=== PATIENT | female | born 1990 ===

== ENCOUNTER 2016-06-17 19:34 | Inpatient (IN) ==
[2016-06-17] MEDS ORDERED: ACETAMINOPHEN 325 MG TABLET PO PRN (20:40)
[2016-06-17] MEDS ORDERED: ONDANSETRON 4 MG/2 ML VIAL IV PRN (20:40)
[2016-06-17] MEDS ORDERED: BUTORPHANOL 2 MG/ML VIAL IV PRN (20:40)
[2016-06-17 21:30] LABS: Basophils % 0.4 % (0.0-0.8); Eosinophils % 0.3 % (0.00-10.9); Hematocrit 41.8 VOL% (35.7-47.0); Hemoglobin 13.3 GM/DL (12.0-16.0); Immature Granulocytes Absolute 0.21 #; Lymphocytes # 2.5 10*3/uL (1.4-4.0); Lymphocytes % 35.5 % (21.3-54.2); Mean Corpuscular HGB Conc 31.8 GM/DL (32-36); Mean Corpuscular Hemoglobin 24 PG (27-34); Mean Corpuscular Volume 76.1 FL (87-102); Mean Platelet Volume 12.2 FL (9.6-12.0); Monocytes # 0.3 10*3/uL (0.11-0.8); Monocytes % 4.7 % (1.7-12.7); NRBC # 0.18 10*3/uL; Neutrophils # 3.9 10*3/uL (1.4-7.4); Neutrophils % 56.1 % (38.7-73.9); Platelet Count 153 T/CUMM (130-400); Red Blood Count 5.49 MC/CUMM (3.8-5.5)
[2016-06-17 21:42] LABS: INR 0.9; PT Patient Result 9.7 SECS; Partial Thromboplastin Time 27.4 SECS (0-40)
[2016-06-17] MEDS: LACTATED RINGERS 1,000 ML IV SCH (21:45)
[2016-06-17] MEDS: AMPICILLIN INJ 2,000 MG in SODIUM CHLORIDE 0.9% 100 ML IV SCH (21:48)
[2016-06-17 21:57] LABS: Albumin 2.2 G/DL (3.4-5.0); Bilirubin,Total 0.4 MG/DL (0.2-1.0); Calcium 8.5 MG/DL (8.5-10.1); Potassium 4.2 MMOL/L (3.5-5.1); Total Protein 5.7 G/DL (6.4-8.3); Uric Acid 10.4 MG/DL (2.6-6.0)
[2016-06-18] MEDS: AMPICILLIN INJ 2,000 MG in SODIUM CHLORIDE 0.9% 100 ML IV SCH (03:00)
[2016-06-18] MEDS ORDERED: OXYTOCIN/LR 20 UNIT/1,000 ML BAG IV ONE ×2 (03:24→11:00)
[2016-06-18] MEDS ORDERED: OXYTOCIN/LR 20 UNIT/1,000 ML BAG IV SCH (04:00)
[2016-06-18] MEDS: LACTATED RINGERS 1,000 ML IV SCH (05:49)
[2016-06-18] MEDS ORDERED: MEPERIDINE 50 MG/1 ML VIAL IV PRN (07:42)
[2016-06-18] MEDS ORDERED: LIDOCAINE 1% 50 ML VIAL ONE (09:10)
--- NOTE | 2016-06-18 10:54 | OB/GYN History & Physical ---
History of Present Illness Chief complaint: 37 weeks and 4 days in active labor History of present illness: Ms. Thrasher is a 26 year old female 2 para 1 EDC is 5,13 patient presents to labor and delivery at 6 cm dilated. heart tones are category 1, patient will request an epidural when appropriate. Contractions are every 2-3 minutes apart and moderate intensity. Home Medications Medication Instructions Recorded Confirmed Type Vit 108/Iron/Folic AC 1 each PO DAILY 06/16/16 06/17/16 History [ One Tablet] Allergies Allergy/AdvReac Type Severity Reaction Status Date / Time No Known Allergies Allergy Verified 06/16/16 16:49 Medical,Surgical,& Family Hx - Medical History Reproductive: No history of: Ectopic , Complication - Surgical History Reproductive Surgeries: Patient denies;: Section - Family History Family History: Denies;: Family Anesthesia Reaction, Family Cancer, Family Diabetes, Family Heart Disease, Family Hematology, Family Hypertension, Family Psychiatric Problems, Family Stroke, Additional Family History - Social History Smoking Status: Never smoker Frequency of Alcohol Use: None 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 - Constitutional Vitals: Vital Signs Temp Pulse Resp BP Pulse Ox 06/18/16 08:00 98.7 F 76 20 120/61 06/18/16 04:00 97.8 F 73 18 91/53 06/18/16 00:00 97.6 F 72 18 119/85 06/17/16 20:00 98 F 100 H 20 132/88 99 General appearance: mild distress - Antepartum / Post Antepartum Exam Cervix -Dilatation: 6 cm, 80%, -2 station Vagina: Present: normal moisture - Head Head exam: Present: normal inspection - Eye Eye exam: Present: EOMI Pupils: Present: LOI - ENT ENT exam: Present: normal exam - Neck Neck exam: Present: normal inspection - Respiratory Respiratory exam: Present: clear to auscultation bilaterally - Breast Breasts: as per HPI Menstruation: as per HPI - Cardiovascular Cardiovascular exam: Present: regular rate and rhythm - GI/Abdominal GI/Abdominal exam: Present: normal bowel sounds, other (Positive heart tones) - Back Exam Back exam: Present: normal inspection - Neurological Exam Neurological exam: Present: alert - Psychiatric Psychiatric exam: Present: normal affect - Skin Skin exam: Present: normal color Assessment and Plan (1) Active labor Status: Acute Assessment and plan: 37+ weeks, and active labor, 6 cm on admission. We will plan on an anticipated vaginal . Current Visit: Yes Results - Labs CBC & BMP: 06/17/16 20:58 06/17/16 20:59
--- NOTE | 2016-06-18 10:58 | Event Note ---
Stage I of labor Admitted at 6 cm dilated Artificial rupture membranes clear fluid External monitoring IV Pitocin heart tones are category 1 Stage II Vaginal 8 lbs. 7 oz. female At 10:09 AM Apgars were 9 at 1 minute and 9 at 5 minutes Cord blood was obtained, and no cord gas Stage III Spontaneous delivery of the placenta 3 cord vessels First-degree laceration at introitus repair with #3-0 chromic Blood loss was 300 cc Mother stable
[2016-06-18] MEDS ORDERED: BISACODYL 10 MG SUPP RECTAL PRN (11:00)
[2016-06-18] MEDS ORDERED: ACETAMINOPHEN 325 MG TABLET PO PRN (11:00)
[2016-06-18] MEDS ORDERED: HYDROCORTISONE 2.5% RECTAL CREAM 30 GM TUBE TOP PRN (11:00)
[2016-06-18] MEDS ORDERED: oxyCODONE/ACETAMINOPHEN 5-325 MG TABLET PO PRN (11:00)
[2016-06-18] MEDS ORDERED: ONDANSETRON 4 MG/2 ML VIAL IV PRN (11:00)
[2016-06-18] MEDS ORDERED: BENZOCAINE 20%/MENTHOL 0.5% SPRAY 56 GM CAN TOP PRN (11:00)
[2016-06-18] MEDS ORDERED: LANOLIN 50% CREAM 0.3 OZ TUBE TOP PRN (11:00)
[2016-06-18] MEDS ORDERED: RHO(D) IMMUNE GLOBULIN 300 MCG SYRINGE IM ONE (11:00)
[2016-06-18] MEDS ORDERED: WITCH HAZEL PADS 100/JAR TOP PRN (11:00)
[2016-06-18] MEDS: oxyCODONE/ACETAMINOPHEN 5-325 MG TABLET PO PRN ×2 (15:36→22:27)
[2016-06-18] MEDS: IBUPROFEN 800 MG TABLET PO PRN (19:57)
[2016-06-18] MEDS: DOCUSATE SODIUM 100 MG CAPSULE PO SCH (20:57)
[2016-06-19 06:46] LABS: Basophils % 0.3 % (0.0-0.8); Eosinophils % 0.4 % (0.00-10.9); Hematocrit 38.3 VOL% (35.7-47.0); Hemoglobin 11.9 GM/DL (12.0-16.0); Immature Granulocytes % 1.4 %; Immature Granulocytes Absolute 0.16 #; Mean Corpuscular HGB Conc 31.1 GM/DL (32-36); Mean Corpuscular Hemoglobin 25 PG (27-34); Mean Corpuscular Volume 78.8 FL (87-102); Mean Platelet Volume 12.7 FL (9.6-12.0); Monocytes # 0.8 10*3/uL (0.11-0.8); Monocytes % 6.6 % (1.7-12.7); NRBC # 0.11 10*3/uL; Neutrophils # 6.4 10*3/uL (1.4-7.4); Neutrophils % 56.3 % (38.7-73.9); Platelet Count 116 T/CUMM (130-400); Red Blood Count 4.86 MC/CUMM (3.8-5.5); White Blood Count 11.4 T/CUMM (4-12)
--- NOTE | 2016-06-19 08:22 | OB/GYN Progress Note ---
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 - Constitutional Vitals: Vital Signs Temp Pulse Resp BP Pulse Ox 06/19/16 07:41 97.3 F L 58 L 18 113/67 99 06/19/16 03:50 97.3 F L 68 16 104/66 96 06/18/16 23:44 97.9 F 59 L 16 117/73 97 06/18/16 20:00 97.2 F L 64 20 121/73 99 06/18/16 16:00 97.8 F 54 L 16 132/81 96 06/18/16 15:05 98.2 F 51 L 18 158/91 98 06/18/16 14:05 98.7 F 52 L 18 157/88 97 06/18/16 13:05 98.2 F 62 18 116/77 97 06/18/16 12:35 97.8 F 53 L 18 154/85 98 06/18/16 12:05 97.7 F 53 L 18 156/96 99 General appearance: no acute distress - Head Head exam: Present: normocephalic - Eye Eye exam: Present: EOMI Pupils: Present: LOI - GI/Abdominal GI/Abdominal exam: Present: soft. Absent: tenderness Results - Labs CBC & BMP: 06/19/16 06:27 06/17/16 20:59
[2016-06-19] MEDS: DOCUSATE SODIUM 100 MG CAPSULE PO SCH ×2 (08:35→21:30)
[2016-06-19] MEDS ORDERED: DIPH/TET/ACEL PERT BOOSTER VACCINE 0.5 ML VIAL IM ONE (09:00)
[2016-06-19] MEDS ORDERED: MEASLES/MUMPS/RUBELLA VACCINE 0.5 ML VIAL SUBCUT ONE (09:00)
[2016-06-19] MEDS: IBUPROFEN 800 MG TABLET PO PRN (15:20)
[2016-06-20 07:33] VITALS: BP 124/85
[2016-06-20] MEDS: DOCUSATE SODIUM 100 MG CAPSULE PO SCH (09:00)
--- NOTE | 2016-06-20 10:42 | Discharge Summary ---
Hospital Course - Hospital Course Hospital Course: Routine course without issue Pt feels good this morning and is ready to go home. Diagnosis - Discharge Diagnosis (1) Encounter for full-term uncomplicated delivery Status: Acute Specialty Discharge - Follow Up or Referrals Follow up with: Guilherme Bee MD [Primary Care Provider] - Discharge Plan - Discharge Data Disposition: Disch To Home/Self Care Condition at Discharge: Stable Discharge Diet: advance to your usual diet Activity: other (routine ) Hygiene: may shower Weight Bearing at Discharge: full weight bearing Driving: no restrictions Contact your physician if you experience:: fever over 101, Difficulty voiding, Redness or swelling - Discharge Medications No Action Vit 108/Iron/Folic AC [ One Tablet] 1 each PO DAILY - Follow Up or Referral Follow Up: Guilherme Bee MD [Primary Care Provider] - - Forms/Instructions Instructions: Depression (GEN), Perineal Care (DC), Bleeding (DC), Sitz Bath (DC) Exam - Constitutional Vitals: Period Temp Pulse Resp BP Sys/Ramos Pulse Ox Last 24 Hr 97.0 F-98.8 F 51-65 16-20 104-134/67-85 98-99 General appearance: normal weight, no acute distress - Head Head exam: Present: normal inspection, normocephalic - Eye Eye exam: Present: EOMI Pupils: Present: LOI - GI/Abdominal GI/Abdominal exam: Present: soft. Absent: tenderness DS: Provider Date of admission: 06/17/16 19:34 Primary care physician: Guilherme Bee MD Attending physician on admission: Guilherme Bee MD Consults: 06/17/16 20:40 Consult to Anesthesiology [CONS] Routine Consulting Provider: Reason for Anesthesiology: Epidural Consult Comment: Epidural for pain managment 06/18/16 11:00 Consult to Livestock Judging Coach [CONS] Routine Consult Livestock Judging Coach: Breast Feeding Discharging clinician: Wendie Guerrero MD
[2016-06-20] MEDS: IBUPROFEN 800 MG TABLET PO PRN (11:45)
== END 2016-06-20 12:34 | disposition home or self-care (01) | DRG 775 ==
LOC: N.LD → OBSVTOIN 19:34 → N.LD 21:51 → N.OB 06-18 11:58
PROVIDERS: ADMIT Obstetrics & Gynecology; ATTEND Obstetrics & Gynecology

== ENCOUNTER 2016-08-06 12:15 | Observation (INO) ==
[2016-08-06] MEDS ORDERED: SODIUM CHLORIDE 0.9% 1,000 ML IV STA (13:15)
[2016-08-06] MEDS ORDERED: CEFTAROLINE 600 MG in SODIUM CHLORIDE 0.9% 100 ML IV STA ×2 (13:24→13:35)
[2016-08-06] MEDS ORDERED: ONDANSETRON 4 MG/2 ML VIAL IV STA (13:25)
[2016-08-06] MEDS ORDERED: HYDROmorphone 2 MG/1 ML VIAL IV ONE (13:25)
--- NOTE | 2016-08-06 13:27 | Emergency Department Note ---
Audra Enrique Gwan, am scribing for, and in the presence of, Garry Stanford MD 13 :20. Abdoulaye Enrique Charles R, MD, personally performed the services described in this documentation, ascribed by Wiley Zhu in my presence, and it is both accurate and complete 326 . Arrival - Arrival Chief Complaint: Non-Specific Stated Complaint: May need IV for Breast per Dr. Bee ED Nursing Triage Note: Pt is 7 weeks post - right breast pain onset x 2 weeks ago - was seen by Dr Bee 2 weeks ago and was seen again yesterday - pt was given Keflex yesterday - pt states that the area is worse and she was told to come to the ER for evaluation Mode of Arrival: Ambulatory Limitations: No Limitations Source: Patient, Old Records Reviewed, RN Notes Reviewed Time Seen by Provider: 08/06/16 12:40 - History of Present Illness HPI Narrative: Patient is a 26 y/o female who presents to the ED with a c/o right breast pain with an onset 2 weeks ago. Patient does not speak Trinidadian. Mother confirmed that she is 7 weeks post and that she is followed by Dr. Bee. Mother continued to note that she has f/u with Dr. Bee about discomfort yesterday and received some Kefelx with little to not relief. Patient had fever with an onset yesterday and was treated with Tylenol. At time of triage, pt's temperature was 99.3. Mother alerted Dr. Bee office today and was instructed to report to ED for further evaluation. Mother confirmed that pt has been following Dr. Bee instructions of suctioning breast of milk and wrapping breast with ariana bandage with no relief. Mother denies that nothing comes out after suctioning. Patient delivered baby at term, vaginally with no complication. Onset (ago): week(s) Consistency: constant Severity: moderate Allergies/Adverse Reactions: Allergies Allergy/AdvReac Type Severity Reaction Status Date / Time No Known Allergies Allergy Verified 06/16/16 16:49 Home Medications: Home Medications Medication Instructions Recorded Confirmed Type HYDROcodone/ACETAMIN 5-325 [[place] 1 tablet PO Q6H PRN 08/06/16 08/06/16 History 5-325] cephALEXin [Cephalexin] 500 mg PO TID 08/06/16 08/06/16 History Review of System - Review of System 12 point system: reviewed and no additional remarkable complaints except as stated - Review of System Constitutional: Present: as per HPI, fever Eyes: Absent: discharge, pain Head/Ears/Nose/Throat: Absent: earache Respiratory: Absent: cough Cardiovascular: Absent: chest pain Gastrointestinal: Absent: abdominal pain, nausea, vomiting, diarrhea Genitourinary female: Present: as per HPI, other (right breast is hurting ) Musculoskeletal: Absent: arm pain, back pain, leg pain, neck pain Skin: Absent: rash, lesions Neurological: Absent: headache, weakness Psychiatric: Absent: anxiety, depression Medical,Surgical,& Family Hx - Medical History Reproductive: No history of: Ectopic , Complication - Surgical History Neurologic Surgeries: Patient denies: Neurologic Surgery Reproductive Surgeries: Patient denies;: Section - Family History Family History: Denies;: Family Anesthesia Reaction, Family Cancer, Family Diabetes, Family Heart Disease, Family Hypertension, Family Psychiatric Problems, Family Stroke - Social History Smoking Status: Never smoker Frequency of Alcohol Use: None Type of Drug Use: None Exam Vital Signs: Vital Signs Temperature 99.3 F 08/06/16 12:30 Pulse Rate 89 08/06/16 12:30 Respiratory Rate 16 08/06/16 12:30 Blood Pressure 126/80 08/06/16 12:30 - General General appearance: alert, in no apparent distress - Head Head exam: Present: atraumatic, normocephalic - Eye Eye exam: Present: normal appearance, PERRL, EOMI - ENT ENT exam: Present: normal oropharynx, mucous membranes moist, TM's normal bilaterally, normal external ear exam - Neck Neck exam: Present: full ROM, trachea midline. Absent: tenderness - Chest Chest inspection: Present: symmetric chest wall rise. Absent: tenderness - Respiratory Respiratory exam: Present: normal lung sounds bilaterally. Absent: respiratory distress - Cardiovascular Cardiovascular exam: Present: regular rate, normal rhythm, normal heart sounds. Absent: murmur - Abdominal Exam Abdominal exam: Present: soft, normal bowel sounds. Absent: distention, tenderness - Extremities Exam Extremities exam: Present: full ROM. Absent: tenderness - Back Exam Back exam: Present: full ROM. Absent: tenderness - Neurological Exam Neurological exam: Present: alert, oriented X3, CN II-XII intact. Absent: motor sensory deficit - Psychiatric Psychiatric exam: Present: normal affect, normal mood - Skin Skin exam: Present: warm, dry, intact, other (Erythema and mastitis to right breast with obvious engorgement with milk. ) Course - Consultations Consultation #1: Dr. Bee said to consult to general surgery. Time: 13:26 Consultation #2: Spoke to Dr. Augustine general surgeon states admit the patient placed on IV antibiotics ultrasound right breast and he will see in the hospital Time: 13: Results - Labs CBC & BMP: 08/06/16 13:16 08/06/16 13:16 Lab Results: I have reviewed the patients labs Labs: Laboratory Tests 08/06/16 13:16 WBC 13.6 H RBC 4.62 Hgb 11.0 L Hct 34.2 L MCV 74.0 L MCH 24 L Plt Count 421 H MPV 9.4 L Neut % (Auto) 74.1 H Lymph % (Auto) 15.9 L Neut # (Auto) 10.1 H [place] # (Auto) 1.0 H - Diagnostic Findings Procedure: Chest x-ray: report reviewed by me (No acute cardiopulmonary process is identifed. ) Disposition Clinical Impression: Mastitis, right, acute, Abscess of right breast, Case discussed with: patient, patient's family Disposition: Still a Patient Condition: Stable Time of Disposition: 14:19
[2016-08-06 13:34] LABS: Basophils % 0.3 % (0.0-0.8); Eosinophils # 0.3 10*3/uL (0.0-0.87); Eosinophils % 1.8 % (0.00-10.9); Hematocrit 34.2 VOL% (35.7-47.0); Immature Granulocytes % 0.3 %; Immature Granulocytes Absolute 0.04 #; Lymphocytes # 2.2 10*3/uL (1.4-4.0); Lymphocytes % 15.9 % (21.3-54.2); Mean Corpuscular HGB Conc 32.2 GM/DL (32-36); Mean Corpuscular Hemoglobin 24 PG (27-34); Mean Platelet Volume 9.4 FL (9.6-12.0); Monocytes % 7.6 % (1.7-12.7); Neutrophils # 10.1 10*3/uL (1.4-7.4); Neutrophils % 74.1 % (38.7-73.9); Platelet Count 421 T/CUMM (130-400); Red Blood Count 4.62 MC/CUMM (3.8-5.5); Red Cell Distribution Width 15.3 % (9.3-17.3); White Blood Count 13.6 T/CUMM (4-12)
--- NOTE | 2016-08-06 13:36 | XRay Report ---
Referring Physician: Garry Stanford Exam: XR chest 1V portable Date: August 06, 2016 at 1:25 PM Reason: Preoperative respiratory evaluation Comparison: None Findings: The cardiac silhouette is normal in size. No focal consolidation, pneumothorax or pleural effusion is identified. No acute osseous process is seen. Impression: No acute cardiopulmonary process is identified. PROCEDURE INTERPRETED AT [facility] DEPARTMENT OF RADIOLOGY Final Report Signed by: Dr. Jole Lott
[2016-08-06] MEDS ORDERED: ONDANSETRON 4 MG/2 ML VIAL ONE (14:07)
[2016-08-06] MEDS ORDERED: CEFTAROLINE 600 MG VIAL IV ONE (14:07)
[2016-08-06] MEDS ORDERED: HYDROmorphone 2 MG/1 ML VIAL ONE (14:07)
[2016-08-06 14:08] LABS: Albumin 3.1 G/DL (3.4-5.0); Bilirubin,Total 0.5 MG/DL (0.2-1.0); Calcium 9.1 MG/DL (8.5-10.1); Magnesium 2.4 MG/DL (1.8-2.4); Osmolality,Calculated 273.5 MOS/KG (273-304); Potassium 4.5 MMOL/L (3.5-5.1); Total Protein 7.5 G/DL (6.4-8.3)
[2016-08-06] MEDS ORDERED: ACETAMINOPHEN 325 MG TABLET PO PRN (14:08)
[2016-08-06] MEDS ORDERED: ONDANSETRON 4 MG/2 ML VIAL IV PRN ×2 (14:08→18:00)
--- NOTE | 2016-08-06 14:18 | General Surg History&Physical ---
Assessment and Plan - Time spent with patient Time spent with patient: Greater than 30 minutes (1) Abscess of right breast Status: Acute Assessment and plan: 08/06/16 Large right breast cellulitis with likely infected duct and some localized superficial abscess. I discussed with Dr Augustine, who feels she needs admission/observation, IV antibioitcs and will plan for I&D/exploration and possible excision of the duct later this afternoon. Current Visit: Yes History of Present Illness Chief complaint: Right breast abscess History of present illness: Ms. Thrasher is a 26 year old female Home Medications Medication Instructions Recorded Confirmed Type HYDROcodone/ACETAMIN 5-325 [[place] 1 tablet PO Q6H PRN 08/06/16 08/06/16 History 5-325] cephALEXin [Cephalexin] 500 mg PO TID 08/06/16 08/06/16 History Allergies Allergy/AdvReac Type Severity Reaction Status Date / Time No Known Allergies Allergy Verified 06/16/16 16:49 Medical,Surgical,& Family Hx - Medical History Reproductive: No history of: Ectopic , Complication - Surgical History Neurologic Surgeries: Patient denies: Neurologic Surgery Reproductive Surgeries: Patient denies;: Section - Family History Family History: Denies;: Family Anesthesia Reaction, Family Cancer, Family Diabetes, Family Heart Disease, Family Hypertension, Family Psychiatric Problems, Family Stroke - Social History Smoking Status: Never smoker Frequency of Alcohol Use: None Type of Drug Use: None Exam - Constitutional Vitals: Period Temp Pulse Resp BP Sys/Ramos Pulse Ox Last 24 Hr 99.3 F-99.3 F 89 16 126/80 General appearance: no acute distress - Head Head exam: Present: normal inspection - Eye Eye exam: Present: EOMI Pupils: Present: LOI - ENT ENT exam: Present: normal oropharynx Mouth exam: Present: normal voice, dry mucosa - Neck Neck exam: Present: trachea midline. Absent: lymphadenopathy, thyromegaly - Respiratory Respiratory exam: Present: clear to auscultation bilaterally - Cardiovascular Cardiovascular exam: Present: RRR - Breasts Breasts: other (Right breast is completely erythematous to the chest wall. There is a 3-4cm fluctuant area at 11-12:00 position above the areola border. There is no unusual induration. There is no areolar or nipple drainage. It is exquisitely tender to touch. Left breast is soft. Nipple is smooth; areola is involuting. Some milky discharge can be expressed. No masses or tenderness. No unusual induration. ) - GI/Abdominal GI/Abdominal exam: Present: normal bowel sounds, soft. Absent: tenderness - Extremities Exam Extremities exam: Present: normal inspection - Neurological Exam Neurological exam: Present: alert, oriented X3, CN II-XII intact Speech: Present: normal (Normal [place]an-only speaking female) - Skin Skin exam: Present: warm, dry Quality Measures - VTE Contraindication to Pharmacological VTE Prophylaxis: High Risk of Bleeding Results - Labs CBC & BMP: 08/06/16 13:16 Lab Results: I have reviewed the past 24 hour labs (Noted; test not done as she is post /uterus still involuting. I was present during the ultrasound; there is edematous and congested soft tissue and dilated prominent ductal tissue present without gross abscess pockets.)
--- NOTE | 2016-08-06 14:47 | Ultrasound Report ---
Referring Physician: Garry Stanford Exam: US breast RT Date: August 06, 2016 Reason: Mastitis right breast Comparison: None Technique: Grayscale and color flow Doppler images of the right breast were obtained in all 4 quadrants. Ultrasound images were captured and stored. Findings: There is a large complex fluid collection within the anterior right breast, extending to the subareolar region. It is centered within the superior aspect of the anterior right breast where it extends from 2:00 to 11:00. This is difficult to accurately measure but is greater than 5 cm. This is highly concerning for an abscess. Diffuse edema seen within the remaining right breast. Impression: There is a large complex fluid collection within the anterior right breast, extending to the subareolar region. It is centered within the superior aspect of the anterior right breast where it extends from 2:00 to 11:00. This is concerning for an abscess. A follow-up right breast ultrasound in approximately 3-4 months is recommended once clinical symptoms have resolved. BI-RADS Category 3: Probable benign finding. Short-term follow-up is recommended. PROCEDURE INTERPRETED AT [facility] DEPARTMENT OF RADIOLOGY Final Report Signed by: Dr. Joel Lott
[2016-08-06] MEDS: DEXTROSE 5% NACL 0.45% 1,000 ML IV SCH ×2 (16:57→22:39)
[2016-08-06] MEDS ORDERED: BUPIVACAINE MPF 0.25% /EPI 30 ML VIAL ONE (17:59)
[2016-08-06] MEDS ORDERED: LACTATED RINGERS 1,000 ML IV SCH (18:00)
[2016-08-06] MEDS ORDERED: HYDROmorphone 2 MG/1 ML VIAL IV PRN (18:00)
--- NOTE | 2016-08-06 18:27 | Operative Note ---
Date of procedure: 08/06/16 Pre-op diagnosis: Right breast abscess Post-op diagnosis: same Procedure: Operative note: Preoperative diagnosis: Large indurated erythematous mass of the right breast probably due to an abscess Postop diagnosis: Abscess of the right breast Procedure: Excisional debridement and drainage of abscess right breast Surgeon Dr. Augustine Plant Engineer Kat Lauren, ZIPPER SETTER ACNP Anesthesia was general endotracheal. Brief history: 26-year-old female who is 7 weeks and has been trying to breast-feed and has had a 2 week history of marked painful swelling and erythematous changes of the right breast. She has been on some Keflex but certainly that is not improved this and she has an extensive area of erythematous it is involving two thirds of the breast with a fluctuant mass on the second superior 12:00 portion of the breast. We admitted her and brought her here for surgery for drainage and debridement. Procedure: With patient in supine position prepped and draped in a sterile fashion timeout and antibiotics completed approaches area of the mass of the right breast. At this point found the areolar border on the superior aspect of this took a knife made an incision from the 11:00 to 1 o'clock position going through the skin subtenons tissue. We entered a pocket with a large amount of grayish creamy thick purulent material that we cultured with swabs. I then opened this up widely and with scissors I begin to debride the skin edges and the necrotic infected subcutaneous tissue and the breast at this time. Continued to debride tissue as long as I can see any areas of drainage. Once the area of drainage was clear we washed and irrigated and used electrocauterization control bleeding. Cleaned up a few portions of the deep subcutaneous tissue to ensure that we had everything completely drained. Once that was completed we have now a wound that is 6 cm x 2 cm 6 cm in size. At that point we packed the wound with the [place]'s wet fluff put a bulky dressing on long with a surgical bra took patient recovery room stable satisfactory condition. Estimated blood loss 20 cc Sponge count correct 2 Drains none Complications none Condition stable satisfactory Anesthesia: TEREZA Surgeon / Physician: Duglas Augustine Plant Engineer: Kat Lauren Estimated blood loss: other (20 cc) Specimens: other (Tissue and swabs for culture) Condition: stable Disposition: floor Results - Labs CBC & BMP: 08/06/16 13:16 08/06/16 13:16 Discharge Plan - Discharge Medications No Action cephALEXin [Cephalexin] 500 mg PO TID HYDROcodone/ACETAMIN 5-325 [[place] 5-325] 1 tablet PO Q6H PRN PRN Reason: Pain - Follow Up or Referral - Forms/Instructions
[2016-08-06] MEDS ORDERED: CHLORHEXIDINE 4% SOLN 118 ML BOTTLE TOP ONE (18:43)
[2016-08-06] MEDS: CEFTAROLINE 600 MG in SODIUM CHLORIDE 0.9% 100 ML IV SCH (20:03)
--- NOTE | 2016-08-06 20:07 | Anesthesia Post-Op ---
Anesthesia Post OP - Post Ansesthetic Evaluation Patient seen in post op: Yes Resp: within normal limits CV: within normal limits Mental: within normal limits Temp: within normal limits [id number]: within normal limits Nausea and Vomiting: within normal limits Pain: within normal limits
[2016-08-06] MEDS: HYDROmorphone 2 MG/1 ML VIAL IV PRN (22:13)
[2016-08-07] MEDS: DEXTROSE 5% NACL 0.45% 1,000 ML IV SCH ×2 (05:36→18:35)
[2016-08-07] MEDS: CEFTAROLINE 600 MG in SODIUM CHLORIDE 0.9% 100 ML IV SCH ×2 (06:55→20:12)
[2016-08-07 07:28] LABS: Basophils % 0.4 % (0.0-0.8); Eosinophils # 0.2 10*3/uL (0.0-0.87); Eosinophils % 3.1 % (0.00-10.9); Hematocrit 30.6 VOL% (35.7-47.0); Hemoglobin 9.8 GM/DL (12.0-16.0); Immature Granulocytes % 0.4 %; Immature Granulocytes Absolute 0.03 #; Lymphocytes % 25.9 % (21.3-54.2); Mean Corpuscular Hemoglobin 24 PG (27-34); Mean Corpuscular Volume 74.8 FL (87-102); Mean Platelet Volume 9.4 FL (9.6-12.0); Monocytes # 0.4 10*3/uL (0.11-0.8); Monocytes % 5.8 % (1.7-12.7); Neutrophils # 4.9 10*3/uL (1.4-7.4); Neutrophils % 64.4 % (38.7-73.9); Platelet Count 383 T/CUMM (130-400); Red Blood Count 4.09 MC/CUMM (3.8-5.5); Red Cell Distribution Width 15.5 % (9.3-17.3); White Blood Count 7.5 T/CUMM (4-12)
[2016-08-07 08:02] LABS: Calcium 8.1 MG/DL (8.5-10.1); Osmolality,Calculated 276.4 MOS/KG (273-304); Potassium 4.8 MMOL/L (3.5-5.1)
[2016-08-07] MEDS: SODIUM HYPOCHLORITE 0.25% IRRIG 473 ML BOTTLE TOP SCH (09:09)
[2016-08-07] MEDS: PANTOPRAZOLE 40 MG TABLET PO SCH (09:10)
[2016-08-07] MEDS: HYDROmorphone 2 MG/1 ML VIAL IV PRN ×2 (09:47→18:54)
--- NOTE | 2016-08-07 12:34 | General Surgery Progress Note ---
Assessment and Plan - Time spent with patient Time spent with patient: Greater than 30 minutes (1) Abscess of right breast Status: Acute Assessment and plan: 08/07/2016. Patient is a little bit better this morning little bit less discomfort. We did take the dressing down and the cavity is fairly large but looks clean with no signs of any further purulent drainage present. Erythematous changes are less on the upper part of the breast but still some in the inferior part. There may be some potential early skin loss or skin changes on the upper flap will have to wait and see on this area. Cultures are pending at this time. Patient does not speak Romanian and we have had a mass spectrometry manager and to try to help communicate with her at this time. During this process we have tried to review with her what can be involved in taking care of this wound and try to establish some help with her to help with this wound care. It is easy to tell the patient is overwhelmed at this time with the size of the wound and was can be involved in caring for the wound. Will give him a day to see if she can tolerate this wound care and see if the family and her can handle the care itself. We give him specific instructions as to what to do how to do it will see how she responds to this this time. If she was to go home with without a clear sensitivity on the cultures we would probably send her home on some Cleocin start with until the final of the cultures come out. Current Visit: Yes Subjective Patient reports: Present: no new complaints, pain is less, tolerating a regular diet, bowel movement, afebrile Exam - Constitutional Vitals: Period Temp Pulse Resp BP Sys/Ramos Pulse Ox Last 24 Hr 96.9 F-98.9 F 61-102 13-20 92-130/51-108 93-100 General appearance: mild distress - Head Head exam: Present: normal inspection - ENT ENT exam: Present: normal exam - Neck Neck exam: Present: normal inspection - Respiratory Respiratory exam: Present: clear to auscultation bilaterally, rales - Cardiovascular Cardiovascular exam: Present: RRR - Breasts Breasts: other (Wound of the right breast is clean and deep. Erythemia is less. wound bed is clean without drainage. Possible for some skin lost.) - GI/Abdominal GI/Abdominal exam: Present: hypoactive bowel sounds, soft - Extremities Exam Extremities exam: Present: normal inspection - Back Exam Back exam: Present: normal inspection - Neurological Exam Neurological exam: Present: alert, oriented X3, CN II-XII intact - Skin Skin exam: Present: normal color, warm, dry Results - Labs CBC & BMP: 08/07/16 07:08 08/07/16 07:08 Lab Results: I have reviewed the past 24 hour labs Quality Measures - VTE Contraindication to Pharmacological VTE Prophylaxis: High Risk of Bleeding Specialty Discharge - Follow Up or Referrals Follow up with: Duglas Augustine MD [Physician] -
[2016-08-07] MEDS: ONDANSETRON 4 MG/2 ML VIAL IV PRN (20:58)
[2016-08-08] MEDS: DEXTROSE 5% NACL 0.45% 1,000 ML IV SCH ×5 (00:28→23:08)
[2016-08-08] MEDS: CEFTAROLINE 600 MG in SODIUM CHLORIDE 0.9% 100 ML IV SCH ×2 (06:55→18:41)
[2016-08-08] MEDS: PANTOPRAZOLE 40 MG TABLET PO SCH (08:55)
--- NOTE | 2016-08-08 10:08 | General Surgery Progress Note ---
Assessment and Plan - Time spent with patient Time spent with patient: Less than 30 minutes (1) Abscess of right breast Status: Acute Assessment and plan: 08/08/16 Stable post I&D of breast abscess. I felt they might be ready for discharge and she is participating with the wound care well, but with the nausea /vomiting and now an emerging Gram negative organism, I believe it may be best to leave her on Teflaro another day until we have a final report. Hopefully she' ll be able to be discharged on a single agent antibiotic in order to simplify her treatment. We will continue working with the patient and family on wound management, but she should be able to handle this by the time she goes home. 08/06/16 Large right breast cellulitis with likely infected duct and some localized superficial abscess. I discussed with Dr Augustine, who feels she needs admission/observation, IV antibioitcs and will plan for I&D/exploration and possible excision of the duct later this afternoon. Current Visit: Yes Subjective Patient reports: Present: pain is less, tolerating a regular diet, other ( Through family member/per diem interpreter, she says she is feeling better, although she vomited x 1 last night. No n/v today, no other complaints.) Exam - Constitutional Vitals: Period Temp Pulse Resp BP Sys/Ramos Pulse Ox Last 24 Hr 96.9 F-98.1 F 64-72 16-20 94-135/59-85 93-100 General appearance: no acute distress - Respiratory Respiratory exam: Present: clear to auscultation bilaterally - Cardiovascular Cardiovascular exam: Present: RRR - Breasts Breasts: other (Erythema is now confined to the halie incisional area; no induration. Wound bed is clean and there is no purulence. She is participating in wound care.) - Extremities Exam Extremities exam: Present: normal inspection Results - Labs CBC & BMP: 08/07/16 07:08 08/07/16 07:08 Lab Results: I have reviewed the past 24 hour labs (Gram positives & negatives on preliminary.) Quality Measures - VTE Contraindication to Pharmacological VTE Prophylaxis: High Risk of Bleeding Specialty Discharge - Follow Up or Referrals Follow up with: Duglas Augustine MD [Physician] -
[2016-08-08] MEDS: HYDROmorphone 2 MG/1 ML VIAL IV PRN (10:13)
[2016-08-08] MEDS: ONDANSETRON 4 MG/2 ML VIAL IV PRN (10:20)
[2016-08-08] MEDS: SODIUM HYPOCHLORITE 0.25% IRRIG 473 ML BOTTLE TOP SCH (10:40)
[2016-08-09] MEDS: CEFTAROLINE 600 MG in SODIUM CHLORIDE 0.9% 100 ML IV SCH (09:36)
[2016-08-09] MEDS: PANTOPRAZOLE 40 MG TABLET PO SCH (09:37)
[2016-08-09] MEDS: SODIUM HYPOCHLORITE 0.25% IRRIG 473 ML BOTTLE TOP SCH (10:00)
--- NOTE | 2016-08-09 12:24 | Discharge Summary ---
Hospital Course - Hospital Course Hospital Course: Discharge summary 08/09/2016. Diagnosis 1. right breast abscess 2. 7 weeks post uncomplicated vaginal delivery Brief summary-this 26-year-old lactating female had reportedly been treated for approximately 2 weeks for right breast abscess. 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 Her BALLOON DESIGN PRINTER had given her 2 separate courses of antibiotics, the last being Keflex, with no improvement. In fact, the area on the right breast had worsened over the 2 days prior to admission. She presented to the emergency room on 08/06/2016, where unimpressive erythematous and indurated right breast was noted, with a large 3-4 cm fluctuant area superior to the right areola. She was febrile at that time, with a slightly elevated white count. It was felt that the area did indeed include an abscess cavity, although ultrasound was equivocal. We explained this via odd piece checker to the patient, who seemed to understand. At that point we offered surgical I and D, which she favored at this point. She was taken to the operating room on the evening of 08/06/2016, where a very large right breast abscess was drained, with a large amount of purulent material evacuated leaving an impressive cavity which required irrigations and packing. Postoperatively she did quite well, except for discomfort during the dressing changes, which was managed with p.o. narcotics. Her white count returned to normal the following day, and her labs and vital signs have remained stable throughout admission. She does continue to have occasional nausea and had one episode of vomiting vomiting, which was felt to be related to her medications. Except for the language barriers, which was handled through family and translators via a local restoration, we were able to slowly teach them how to manage this wound. Today she is tolerating regular diet, she is able to participate and actually perform part of her wound care, and the erythema of the breast has now cleared. We are left with a rather large but manageable wound cavity, that does now have a pink granulating base. Cultures have begun emerging, and while there is no final sensitivity and, the grids do show a gram-positive, gram-negative, and MRSA organisms, all sensitive at this point to Bactrim. They are very anxious to discharge home, considering she does have a 7 week old infant to care for, and she does have good family support with her father and his family in this area. She does have also support of the local restoration of the medical library assistant, who will assist her in getting wound care supplies and medications. I feel that with her being able to manage the wound with minimal assistance, with her seeming to have a good understanding of the principles of how to protect herself, other family members , and her infant from cross-contamination, and with the wound having responded so well to surgical drainage and IV antibiotics, we can successfully switch her over to Bactrim DS, 1 p.o. every 12 hours 10 days, and will continue twice daily wound care, with Hibiclens showers and Dakin's irrigations, Dakin's packed dressings, and just use some triple antibiotic on the skin surface as needed for comfort. They seem very comfortable with this plan, and had requested minimal pain medications, primarily for relief with dressing changes and we will also leave her with little something for nausea. We will plan to follow her up in our office 1 week from for recheck. - Time spent with patient Time with patient DS: Less than 30 minutes Diagnosis - Discharge Diagnosis (1) Abscess of right breast Status: Acute Specialty Discharge - Follow Up or Referrals Follow up with: Duglas Augustine MD [Physician] - (Call our office on Wednesday to schedule an appointment to see me on , September 19) Discharge Plan - Discharge Data Disposition: Disch To Home/Self Care Condition at Discharge: Stable Discharge Diet: advance to your usual diet Activity: increase activity as tolerated Hygiene: may shower Weight Bearing at Discharge: full weight bearing Driving: no restrictions Contact your physician if you experience:: fever over 101, Redness or swelling, Nausea/Vomiting, Shortness of breath, Bleeding, pain uncontrolled by pain medications Wound / Dressing Care Instructions: Shower morning and night using 5 cc of Hibiclens. When this is all gone, switch to liquid Dial soap. Be sure to lather the breast skin and allow lather to wash inside the wound cavity; rinse well and pat dry. POUR 2 capfuls half-strength Dakin solution into the wound cavity and gently blot. Place a Dakin's soaked gauze into the wound cavity. Place a second Dakin's soaked gauze on top of the wound. Use a small amount of triple antibiotic ointment on the irritated skin if desired. Use additional dry gauze over the wet gauze. Secure very lightly with tape and allow surgical bra or a sports bra to hold in place. - Discharge Medications New Promethazine Tab [Phenergan Tab] 25 mg PO Q6H PRN #20 tablet PRN Reason: Nausea/Vomiting Sodium Hypochlorite 0.25% Irr [Dakins 1/2 Strength 0.25% Soln] 1 applic TOP DAILY #1 applic Sulfameth/Trimeth 800-160 Tab [Bactrim DS Tab] 1 tablet PO BID #20 tablet Continue HYDROcodone/ACETAMIN 5-325 [[place] 5-325] 1 tablet PO Q6H PRN #14 tablet PRN Reason: Pain No Action cephALEXin [Cephalexin] 500 mg PO TID - Follow Up or Referral Follow Up: Duglas Augustine MD [Physician] - - Forms/Instructions Additional Discharge Instructions: Work excuse if needed Exam - Constitutional Vitals: Period Temp Pulse Resp BP Sys/Ramos Pulse Ox Last 24 Hr 98.2 F-99.0 F 60-70 16-20 106-128/68-91 94-100 General appearance: normal weight, no acute distress - Head Head exam: Present: normal inspection - Respiratory Respiratory exam: Present: clear to auscultation bilaterally - Cardiovascular Cardiovascular exam: Present: regular rate and rhythm - GI/Abdominal GI/Abdominal exam: Present: normal bowel sounds, soft - Extremities Exam Extremities exam: Present: normal inspection - Neurological Exam Neurological exam: Present: alert, oriented X3, normal gait - Psychiatric Psychiatric exam: Present: normal affect, normal mood. Absent: agitated, anxious - Skin Skin exam: Present: other (Right breast erythema has completely cleared. There is very mild ulcerative skin abrasion on the anterior surface of the breast just superior to the surgical incision. This is not draining and does not look necrotic. Wound bed is clean, pink, and I see no additional necrotic tissue, no gross purulence, and no unusual pocketing or undermining. It is not unusually tender, and there is no unusual induration.) Discharge Results Procedures and tests throughout hospitalization: Pending Orders 08/06/16 13:31 Blood Culture Stat 08/06/16 18:38 Tissue (Biopsy) Culture and GS Routine Labs on day of discharge: Preliminary micro results at discharge 08/06/16 18:38 Tissue Culture - Preliminary Breast - Right Escherichia coli Gram Positive Cocci Gram Negative Rods 08/06/16 13:31 Blood Culture - Preliminary Blood No growth at 1 day 08/06/16 13:31 Blood Culture - Preliminary Blood No growth at 1 day DS: Provider Date of admission: 08/06/16 14:08 Primary care physician: Guilherme Bee MD Attending physician on admission: Duglas Augustine MD Consults: 08/06/16 14:01 Consult to Anesthesiology [CONS] Routine Consulting Provider: Reason for Anesthesiology: Pre-op Clearance 08/06/16 14:11 Consult to Case Mgmt/Social Srvs [CONS] Routine Reason for Case Mgmt/Social Srvs: Rehab Other Consult Comment: Home situation Discharging clinician: Kat Lauren CNP, R
[2016-08-09 12:58] VITALS: BP 132/85
== END 2016-08-09 13:05 | disposition home or self-care (01) ==
LOC: N.EDINP 12:15 → N.ED 12:15 → N.EDINP 15:55 → N.3E 16:06
PROVIDERS: ADMIT Specialist; ATTEND Specialist

== ENCOUNTER 2021-08-26 23:49 | Inpatient (IN) ==
[2021-08-27] MEDS ORDERED: ACETAMINOPHEN 500 MG TABLET PO ONE (01:28)
[2021-08-27] MEDS ORDERED: OXYTOCIN/LR 20 UNIT/1,000 ML BAG IV ONE ×2 (02:27→03:57)
[2021-08-27] MEDS ORDERED: METHYLERGONOVINE 0.2 MG/1 ML AMP IM PRN (02:27)
[2021-08-27] MEDS ORDERED: MEPERIDINE 50 MG/1 ML VIAL IV PRN (02:27)
[2021-08-27] MEDS ORDERED: LACTATED RINGERS 500 ML IV PRN (02:27)
[2021-08-27] MEDS ORDERED: TRANEXAMIC ACID 1,000 MG in SODIUM CHLORIDE 0.9% 100 ML IV PRN (02:27)
[2021-08-27] MEDS ORDERED: ONDANSETRON 4 MG/2 ML VIAL IV PRN ×2 (02:27→03:57)
[2021-08-27] MEDS ORDERED: LACTATED RINGERS 250 ML IV ONE (02:27)
[2021-08-27] MEDS ORDERED: CARBOPROST TROMETHAMINE 250 MCG/ML AMP IM PRN (02:27)
[2021-08-27] MEDS ORDERED: miSOPROStoL 200 MCG TABLET RECTAL PRN (02:27)
[2021-08-27] MEDS ORDERED: ACETAMINOPHEN 500 MG TABLET PO PRN (02:27)
[2021-08-27] MEDS ORDERED: LACTATED RINGERS 1,000 ML IV SCH (02:30)
[2021-08-27] MEDS ORDERED: AMPICILLIN INJ 2,000 MG in SODIUM CHLORIDE 0.9% 100 ML IV ONE (02:31)
[2021-08-27] MEDS: BUTORPHANOL 2 MG/ML VIAL IV PRN ×2 (02:50→03:00)
[2021-08-27 03:05] LABS: Basophils % 0.2 % (0.0-0.8); Eosinophils % 0.5 % (0.00-10.9); Hematocrit 39.3 VOL% (35.7-47.0); Hemoglobin 12.8 GM/DL (12.0-16.0); Immature Granulocytes % 0.8 %; Immature Granulocytes Absolute 0.07 #; Lymphocytes # 2.5 10*3/uL (1.4-4.0); Lymphocytes % 28.9 % (21.3-54.2); Mean Corpuscular HGB Conc 32.6 GM/DL (32-36); Mean Corpuscular Volume 77.7 FL (87-102); Mean Platelet Volume 11.4 FL (9.6-12.0); Monocytes # 0.6 10*3/uL (0.11-0.8); Monocytes % 7.1 % (1.7-12.7); Neutrophils % 62.5 % (38.7-73.9); Platelet Count 191 T/CUMM (130-400); Red Blood Count 5.06 MC/CUMM (3.8-5.5); Red Cell Distribution Width 14.6 % (9.3-17.3); White Blood Count 8.8 T/CUMM (4-12)
[2021-08-27] MEDS ORDERED: TRANEXAMIC ACID 1,000 MG/10 ML VIAL ONE (03:12)
[2021-08-27 03:25] LABS: Alanine Aminotransferase 24 U/L (13-56); Albumin 2.8 G/DL (3.4-5.0); Alkaline Phosphatase 247 U/L (45-117); Aspartate Amino Transferase 29 U/L (0-37); Bilirubin,Total < 0.39 MG/DL (0.20-1.00); Blood Urea Nitrogen 12 MG/DL (7-18); Calcium 10.1 MG/DL (8.5-10.1); Carbon Dioxide 20 MMOL/L (21-32); Chloride 105 MMOL/L (98-107); Glucose 96 MG/DL (74-106); Potassium 3.5 MMOL/L (3.5-5.1); Sodium 136 MMOL/L (136-145); Total Protein 7.3 G/DL (6.4-8.2)
[2021-08-27 03:41] LABS: Rubella Antibody IgG Result Reactive (NonReactive)
[2021-08-27] MEDS ORDERED: LIDOCAINE 1% 20 ML VIAL INFILTRAT ONE (03:42)
[2021-08-27 03:48] LABS: Hepatitis B Surface Ag Quant < 0.10 Index; Hepatitis B Surface Ag Result Non-Reactive (NonReactive)
[2021-08-27] MEDS ORDERED: oxyCODONE/ACETAMINOPHEN 5-325 MG TABLET PO PRN (03:57)
[2021-08-27] MEDS ORDERED: LANOLIN 50% CREAM 0.3 OZ TUBE TOP PRN (03:57)
[2021-08-27] MEDS ORDERED: WITCH HAZEL PADS 100/JAR TOP PRN (03:57)
[2021-08-27] MEDS ORDERED: RHO(D) IMMUNE GLOBULIN 300 MCG SYRINGE IM ONE (03:57)
[2021-08-27] MEDS ORDERED: ACETAMINOPHEN 325 MG TABLET PO PRN (03:57)
[2021-08-27] MEDS ORDERED: MEASLES/MUMPS/RUBELLA VACCINE 0.5 ML VIAL SUBCUT ONE (03:57)
[2021-08-27] MEDS ORDERED: HYDROCORTISONE 2.5% RECTAL CREAM 30 GM TUBE TOP PRN (03:57)
[2021-08-27] MEDS ORDERED: BISACODYL 10 MG SUPP RECTAL PRN (03:57)
[2021-08-27] MEDS ORDERED: DIPH/TET/ACEL PERT BOOSTER VACCINE 0.5 ML VIAL IM ONE (03:57)
[2021-08-27] MEDS ORDERED: BENZOCAINE 20%/MENTHOL 0.5% SPRAY 56 GM CAN TOP PRN (03:57)
[2021-08-27 04:01] LABS: HIV Antigen/Antibody Result Nonreactive (Nonreactive)
[2021-08-27 04:38] LABS: Cord Venous Blood HCO3 22.1 MMOL/L; Cord Venous Blood PCO2 40.4 MMHG; Cord Venous Blood PO2 35.8
[2021-08-27 04:58] LABS: Basophils % 0.3 % (0.0-0.8); Eosinophils % 0.2 % (0.00-10.9); Hematocrit 37.6 VOL% (35.7-47.0); Hemoglobin 12.1 GM/DL (12.0-16.0); Immature Granulocytes % 0.7 %; Immature Granulocytes Absolute 0.08 #; Lymphocytes # 1.3 10*3/uL (1.4-4.0); Mean Corpuscular HGB Conc 32.2 GM/DL (32-36); Mean Platelet Volume 11.7 FL (9.6-12.0); Monocytes # 0.5 10*3/uL (0.11-0.8); Monocytes % 4.2 % (1.7-12.7); Neutrophils % 82.6 % (38.7-73.9); Platelet Count 178 T/CUMM (130-400); Red Blood Count 4.82 MC/CUMM (3.8-5.5); Red Cell Distribution Width 14.5 % (9.3-17.3); White Blood Count 10.7 T/CUMM (4-12)
[2021-08-27] MEDS ORDERED: AMPICILLIN INJ 1,000 MG in SODIUM CHLORIDE 0.9% 100 ML IV SCH (06:30)
[2021-08-27] MEDS: MULTIVITAMIN (PRENATAL) TABLET PO SCH (10:11)
[2021-08-27] MEDS: DOCUSATE SODIUM 100 MG CAPSULE PO SCH ×2 (10:11→19:20)
[2021-08-27] MEDS: IBUPROFEN 800 MG TABLET PO PRN ×2 (10:13→19:19)
[2021-08-27] MEDS: oxyCODONE/ACETAMINOPHEN 5-325 MG TABLET PO PRN ×2 (10:14→23:03)
[2021-08-28] MEDS: DOCUSATE SODIUM 100 MG CAPSULE PO SCH ×3 (00:21→21:31)
[2021-08-28 05:19] LABS: Basophils % 0.4 % (0.0-0.8); Eosinophils # 0.1 10*3/uL (0.0-0.87); Eosinophils % 1.1 % (0.00-10.9); Hematocrit 36.3 VOL% (35.7-47.0); Hemoglobin 11.6 GM/DL (12.0-16.0); Immature Granulocytes % 0.7 %; Immature Granulocytes Absolute 0.06 #; Lymphocytes # 2.9 10*3/uL (1.4-4.0); Lymphocytes % 35.6 % (21.3-54.2); Mean Corpuscular Volume 78.4 FL (87-102); Mean Platelet Volume 11.6 FL (9.6-12.0); Monocytes # 0.5 10*3/uL (0.11-0.8); Monocytes % 5.7 % (1.7-12.7); Neutrophils % 56.5 % (38.7-73.9); Platelet Count 174 T/CUMM (130-400); Red Blood Count 4.63 MC/CUMM (3.8-5.5); Red Cell Distribution Width 14.7 % (9.3-17.3); White Blood Count 8.1 T/CUMM (4-12)
[2021-08-28] MEDS: IBUPROFEN 800 MG TABLET PO PRN ×2 (14:29→21:31)
[2021-08-28] MEDS: MULTIVITAMIN (PRENATAL) TABLET PO SCH (16:49)
[2021-08-29] MEDS: MULTIVITAMIN (PRENATAL) TABLET PO SCH (10:02)
[2021-08-29] MEDS: DOCUSATE SODIUM 100 MG CAPSULE PO SCH (10:02)
[2021-08-29 11:42] VITALS: BP 118/71
== END 2021-08-29 11:30 | disposition home or self-care (01) | DRG 560 ==
LOC: N.LD 23:49 → N.LDOUT 23:49 → N.LD 08-27 00:01 → N.OB 08-27 08:19 → N.LD 08-27 08:31
PROVIDERS: ADMIT Obstetrics & Gynecology; ATTEND Obstetrics & Gynecology